=== PATIENT | female | born 1960 | race Caucasian/White ===

== ENCOUNTER 2018-05-14 02:03 | Observation (INO) | payer OTHER ==
--- NOTE | 2018-05-14 02:32 | ER Document Report ---
ED General - General Chief Complaint: Chest Pain Stated Complaint: CHEST PAIN Time Seen by Provider: 05/14/18 02:31 Notes: Patient is a 58-year-old female presents with complaint of chest pain. Some dyspnea. Some nausea. Said symptoms around 8 PM and they have gradually worsened. She feels a significant heaviness on her chest. No history of cardiac disease. Past medical problems she has is basal cell cancer on her face for which she is been using a cream for. She stopped using this cream 1 week ago. No fevers. No vomiting. No abdominal pain. She said she had similar symptoms approximately 4 months ago but they went away and therefore she never saw a doctor. She is followed by the [facility]. She used to smoke. She does drink alcohol on a daily basis. TRAVEL OUTSIDE OF THE [place] IN LAST 30 DAYS: No - Related Data Allergies/Adverse Reactions: No Known Allergies Allergy (Verified 05/14/18 02:32) Past Medical History - Social History Smoking Status: Former Smoker Frequency of alcohol use: daily Drug Abuse: None Family History: Reviewed & Not Pertinent Review of Systems - Review of Systems Notes: My Normal Review Basic REVIEW OF SYSTEMS: CONSTITUTIONAL : Denies fever, chills, or sweats. Denies recent illness. EENT: Denies eye, ear, throat, or mouth pain or symptoms. Denies nasal or sinus congestion. CARDIOVASCULAR: Chest pressure RESPIRATORY: Some dyspnea. GASTROINTESTINAL: Denies abdominal pain. Nausea MUSCULOSKELETAL: Denies neck or back pain or joint pain or swelling. SKIN: Denies rash or skin lesions. NEUROLOGICAL: Denies altered mental status or loss of consciousness. Denies headache. Denies weakness or paralysis or loss of use of either side. Denies problems with gait or speech. Denies sensory or motor loss. PSYCHIATRIC: Denies anxiety or stress or depression. ALL OTHER SYSTEMS REVIEWED AND NEGATIVE. Physical Exam - Vital signs Vitals: Temp Pulse Resp BP Pulse Ox 98.5 F 74 16 137/83 H 97 05/14/18 02:17 05/14/18 02:17 05/14/18 02:17 05/14/18 02:17 05/14/18 02:17 - Notes Notes: General Appearance: Well nourished, alert, cooperative, no acute distress, no obvious discomfort. Vitals: reviewed, See vital signs table. Head: Red irritated skin on face due to recent treatment for basal cell cancer. Eyes: PERRL, EOMI, Conjuctiva clear Mouth: No decreasd moisture Lungs: No wheezing, No rales, No rhonci, No accessory muscle use, good air exchange bilaterally. Heart: Normal rate, Regular rythm, No murmur, no rub Abdomen: Normal BS, soft, No rigidity, No abdominal tenderness, No guarding, no rebound, no abdominal masses, no organomegaly Extremities: good pulses in all extremities, no swelling or tenderness in the extremities, no edema. Skin: warm, dry, appropriate color, no rash Neuro: speech clear, oriented x 3, normal affect, responds appropriately to questions. Course - Re-evaluation Re-evalutation: 05/14/18 03:51 Patient's chest pressure was relieved with the nitro. Her symptoms are very consistent with that of coronary disease. Symptoms consist of chest heaviness, nausea, shortness of breath. Being that she had the symptoms relieved with nitro think is appropriate to admit her for further cardiac workup. Initial EKG and troponin are negative. I did speak with the hospitalist, Dr. Beckford, who agrees to evaluate the patient for admission. Dictation of this chart was performed using voice recognition software; therefore, there may be some unintended grammatical errors. - Vital Signs Vital signs: Temp Pulse Resp BP Pulse Ox 98.5 F 79 14 121/82 96 05/14/18 02:17 05/14/18 02:32 05/14/18 03:01 05/14/18 03:01 05/14/18 03:01 - Laboratory Result Diagrams: 05/14/18 02:36 05/14/18 02:36 Laboratory results interpreted by me: 05/14/18 02:36 AST 57 H ALT 81 H - EKG Interpretation by Me Additional EKG results interpreted by me: 05/14/18 02:32 EKG is reviewed and interpreted by me. EKG shows sinus rhythm with a rate of [address] segment elevation or depression. No ischemic T wave inversions. OR interval, QRS duration, QT intervals are within normal range. No old EKG av ailable for comparison. Discharge - Discharge Clinical Impression: Chest pain Qualifiers: Chest pain type: unspecified Qualified Code(s): R07.9 - Chest pain, unspecified Condition: Good Disposition: ADMITTED OBSERVATION Admitting Provider: Hospitalist Unit Admitted: Telemetry
[2018-05-14] MEDS ORDERED: ASPIRIN 325 MG TABLET PO ONE (02:38)
[2018-05-14] MEDS ORDERED: NITROGLYCERIN 0.4 MG/TAB 25 TAB/BOTTLE SL PRN ×2 (02:38→03:37)
[2018-05-14 02:44] LABS: ABSOLUTE EOSINOPHILS # (AUTO) 0.1 10^3/uL (0.0-0.6); ABSOLUTE LYMPHOCYTES (AUTO) 1.6 10^3/uL (0.5-4.7); ABSOLUTE MONOCYTES (AUTO) 0.8 10^3/uL (0.1-1.4); ABSOLUTE NEUT (AUTO) 7.6 10^3/uL (1.7-8.2); BASOPHILS % (AUTO) 0.4 % (0-2); EOSINOPHILS % (AUTO) 1.2 % (0-6); HEMATOCRIT 42.6 % (36.0-47.0); HEMOGLOBIN 14.6 g/dL (12.0-15.5); LYMPHOCYTES % (AUTO) 15.5 % (13-45); MEAN CORPUSCULAR HEMOGLOBIN 31.3 pg (27.0-33.4); MEAN CORPUSCULAR HGB CONC 34.2 g/dL (32.0-36.0); MEAN CORPUSCULAR VOLUME 92 fl (80-97); MONOCYTES % (AUTO) 8.3 % (3-13); PLATELET COUNT 288 10^3/uL (150-450); RED BLOOD COUNT 4.65 10^6/uL (3.72-5.28); RED CELL DISTRIBUTION WIDTH 12.7 % (11.5-14.0); SEGMENTED NEUTROPHILS % (AUTO) 74.6 % (42-78); TOTAL CELLS COUNTED % (AUTO) 100 %; WHITE BLOOD COUNT 10.1 10^3/uL (4.0-10.5)
[2018-05-14 03:05] LABS: ALANINE AMINOTRANSFERASE 81 U/L (9-52); ALKALINE PHOSPHATASE 105 U/L (38-126); ANION GAP 12 (5-19); ASPARTATE AMINO TRANSFERASE 57 U/L (14-36); BILIRUBIN,DIRECT 0.3 mg/dL (0.0-0.4); BILIRUBIN,TOTAL 0.8 mg/dL (0.2-1.3); BLOOD UREA NITROGEN 13 mg/dL (7-20); CALCIUM 10.2 mg/dL (8.4-10.2); CARBON DIOXIDE 24 mmol/L (22-30); CHLORIDE 105 mmol/L (98-107); GLUCOSE 107 mg/dL (75-110); LIPASE 167.7 U/L (23-300); POTASSIUM 4.5 mmol/L (3.6-5.0); TOTAL PROTEIN 7.4 g/dL (6.3-8.2)
[2018-05-14 03:06] LABS: ALCOHOL < 10 mg/dL (NONE DETECTED)
--- NOTE | 2018-05-14 03:18 | RADIOLOGY REPORT (SQ) ---
EXAM DESCRIPTION: XR CHEST 1 VIEW COMPLETED DATE/TME: 05/14/2018 02:39 CLINICAL HISTORY: 58 years Female, chest pain COMPARISON: None. NUMBER OF VIEWS/TECHNIQUE: 1/AP FINDINGS: Adequate lung volume, clear parenchyma, normal cardiac silhouette, and intact bony thorax. IMPRESSION: No acute cardiopulmonary findings.
[2018-05-14] MEDS ORDERED: NITROGLYCERIN 2% OINTMENT 1 GM PACKET TP ONE (03:25)
[2018-05-14] MEDS ORDERED: MAG HYDROX/AL HYDROX/SIMETH SUSP 30 ML UDCUP PO PRN (03:37)
--- NOTE | 2018-05-14 04:34 | PDOC H&P ---
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 Pain lasted approximately 2 hours of nose associated with nausea without vomiting, shortness of breath or palpitations. She admits previous episode approximately 4 months ago which resolved spontaneously without intervention and without follow-up. She denies recent change in medications, change in bowel habits, uncontrolled GERD and otherwise feels well. Past Medical History Cardiac Medical History: Reports: None Pulmonary Medical History: Reports: None EENT Medical History: Reports: None Neurological Medical History: Reports: None Endocrine Medical History: Reports: None Malignancy Medical History: Reports: Skin Cancer GI Medical History: Reports: None Musculoskeltal Medical History: Reports: None Skin Medical History: Reports: Eczema, Other - Atopic dermatitis Psychiatric Medical History: Reports: None Traumatic Medical History: Reports: None Hematology: Reports: None Infectious Medical History: Reports: None Past Surgical History Past Surgical History: Reports: None Social History Information Source: Patient, PENDING SALE TO [facility] Records Lives with: Spouse/Significant other Smoking Status: Former Smoker Frequency of Alcohol Use: Social Drugs: None - Advance Directive Resuscitation Status: Full Code Family History Family History: CAD. denies: Malignancy Parental Family History Reviewed: Yes Children Family History Reviewed: Yes Sibling(s) Family History Reviewed.: Yes Medication/Allergy Allergies/Adverse Reactions: No Known Allergies Allergy (Verified 05/14/18 02:32) Review of Systems Constitutional: ABSENT: chills, fever(s), headache(s), weight gain, weight loss Eyes: ABSENT: visual disturbances Ears: ABSENT: hearing changes Cardiovascular: ABSENT: chest pain, dyspnea on exertion, edema, orthropnea, palpitations Respiratory: ABSENT: cough, hemoptysis Gastrointestinal: ABSENT: abdominal pain, constipation, diarrhea, hematemesis, hematochezia, nausea, vomiting Genitourinary: ABSENT: dysuria, hematuria Musculoskeletal: ABSENT: joint swelling Integumentary: ABSENT: rash, wounds Neurological: ABSENT: abnormal gait, abnormal speech, confusion, dizziness, focal weakness, syncope Psychiatric: ABSENT: anxiety, depression, homidical ideation, suicidal ideation Endocrine: ABSENT: cold intolerance, heat intolerance, polydipsia, polyuria Hematologic/Lymphatic: ABSENT: easy bleeding, easy bruising Physical Exam Vital Signs: Temp Pulse Resp BP Pulse Ox 98.5 F 79 16 137/94 H 97 05/14/18 02:17 05/14/18 02:32 05/14/18 04:01 05/14/18 04:01 05/14/18 04:01 Intake & Output 05/12/18 05/13/18 05/14/18 11:59 11:59 11:59 Weight 68.039 kg General appearance: PRESENT: no acute distress, well-developed, well-nourished Head exam: PRESENT: atraumatic, normocephalic Eye exam: PRESENT: conjunctiva pink, EOMI, PERRLA. ABSENT: scleral icterus Ear exam: PRESENT: normal external ear exam Mouth exam: PRESENT: moist, tongue midline Neck exam: ABSENT: carotid bruit, JVD, lymphadenopathy, thyromegaly Respiratory exam: PRESENT: clear to auscultation [place]. ABSENT: rales, rhonchi, wheezes Cardiovascular exam: PRESENT: RRR. ABSENT: diastolic murmur, rubs, systolic murmur Pulses: PRESENT: normal dorsalis pedis pul Vascular exam: PRESENT: normal capillary refill GI/Abdominal exam: PRESENT: normal bowel sounds, soft. ABSENT: distended, guarding, mass, organolmegaly, rebound, tenderness Rectal exam: PRESENT: deferred Extremities exam: PRESENT: full ROM. ABSENT: calf tenderness, clubbing, pedal edema Neurological exam: PRESENT: alert, awake, oriented to person, oriented to place, oriented to time, oriented to situation, CN II-XII grossly intact. ABSENT: motor sensory deficit Psychiatric exam: PRESENT: appropriate affect, normal mood. ABSENT: homicidal ideation, suicidal ideation Skin exam: PRESENT: dry, intact, warm. ABSENT: cyanosis, rash Results Laboratory Results: 05/14/18 02:36 05/14/18 02:36 05/14/18 05/14/18 02:36 02:36 WBC 10.1 RBC 4.65 Hgb 14.6 Hct 42.6 MCV 92 MCH 31.3 MCHC 34.2 RDW 12.7 Plt Count 288 Seg Neutrophils % 74.6 Lymphocytes % 15.5 Monocytes % 8.3 Eosinophils % 1.2 Basophils % 0.4 Absolute Neutrophils 7.6 Absolute Lymphocytes 1.6 Absolute Monocytes 0.8 Absolute Eosinophils 0.1 Absolute Basophils 0.0 Sodium 141.0 Potassium 4.5 Chloride 105 Carbon Dioxide 24 Anion Gap 12 BUN 13 Creatinine 0.60 Est GFR ( Amer) > 60 Est GFR (Non-Af Amer) > 60 Glucose 107 Calcium 10.2 Total Bilirubin 0.8 AST 57 H ALT 81 H Alkaline Phosphatase 105 Total Protein 7.4 Albumin 5.0 Lipase 167.7 05/14/18 02:36 Troponin I < 0.012 Impressions: Chest X-Ray 05/14/18 02:39 IMPRESSION: No acute cardiopulmonary findings. Assessment & Plan - Diagnosis (1) Chest pain Qualifiers: Chest pain type: unspecified Qualified Code(s): R07.9 - Chest pain, unspecified Is this a current diagnosis for this admission?: Yes Plan: Chest pain care set, serial cardiac enzymes, Cardiolite stress test ordered (2) Nausea Is this a current diagnosis for this admission?: Yes Plan: Cardiac versus esophageal versus pancreatic, follow-up lipase, symptomatic management (3) LFT elevation Is this a current diagnosis for this admission?: Yes Plan: ALT doubled AST, follow-up hep C - Time Time Spent: 50 to 70 Minutes
[2018-05-14] MEDS: HEPARIN SOD (PORCINE) 5,000 UNIT/ML 1 ML SYRINGE SUBCUT SCH ×3 (05:22→21:28)
--- NOTE | 2018-05-14 07:34 | EKG REPORT ---
SEVERITY:- BORDERLINE ECG - SINUS RHYTHM LEFT AXIS DEVIATION NONSPECIFIC ST-T CHANGES : Confirmed by: Ramón Espinoza MD 14-May-2018 07:34:02
[2018-05-14] MEDS ORDERED: ACETAMINOPHEN 325 MG TABLET PO PRN (10:43)
[2018-05-14] MEDS: DOCUSATE SODIUM 100 MG CAPSULE PO SCH ×2 (11:14→20:14)
[2018-05-14 11:42] LABS: CREATINE KINASE MB 0.31 ng/mL (<4.55)
[2018-05-14 11:45] LABS: TROPONIN I < 0.012 ng/mL
[2018-05-14] MEDS: MORPHINE SULFATE 10 MG/ML INJ ONE (13:58)
[2018-05-14 16:45] LABS: CREATINE KINASE MB < 0.22 ng/mL (<4.55); TROPONIN I < 0.012 ng/mL
[2018-05-14] MEDS ORDERED: MORPHINE SULFATE 10 MG/ML INJ IV ONE (17:00)
--- NOTE | 2018-05-14 17:04 | EKG REPORT ---
SEVERITY:- ABNORMAL ECG - SINUS RHYTHM LEFT AXIS DEVIATION NONSPECIFIC T ABNORMALITIES, INFERIOR LEADS : Confirmed by: Ramón Espinoza MD 14-May-2018 17:04:01
[2018-05-14] MEDS ORDERED: PANTOPRAZOLE SODIUM 40 MG VIAL IV SCH (20:00)
[2018-05-15] MEDS: HEPARIN SOD (PORCINE) 5,000 UNIT/ML 1 ML SYRINGE SUBCUT SCH ×2 (05:13→14:35)
[2018-05-15 05:38] LABS: CHOLESTEROL 227.99 mg/dL (0-200); CREATINE KINASE 29 U/L (30-135); TRIGLYCERIDES 259 mg/dL (<150)
[2018-05-15 05:49] LABS: DIRECT LDL 112 mg/dL (<100)
[2018-05-15 06:00] LABS: VLDL CHOLESTEROL 51.8 mg/dL (10-31)
[2018-05-15] MEDS ORDERED: REGADENOSON INJ 0.4 MG/5 ML DISP.SYRIN IV ONE (12:34)
[2018-05-15] MEDS: DOCUSATE SODIUM 100 MG CAPSULE PO SCH (14:33)
--- NOTE | 2018-05-15 14:47 | DRAGON STRESS TEST REPORT ---
Intravenous Lexiscan Cardiolite stress test using single photon emmision computerized tomography. Date of procedure: 05/15/2018. Ordering Provider: Dr. Miguel Beckford. Patient's status: Inpatient. Indication: Chest pain. Coronary risk factors: Age, and family history of coronary artery disease. Resting EKG: Sinus Rhythm. Within Normal Limits. Stress EKG:No changes of ischemia. The patient had no chest pain or discomfort, and there were no arrhythmias seen. Reason for termination: Protocol. Conclusions: Normal EKG and hemodynamic response to IV Lexiscan. Nuclear data: At rest the patient was given 10.06 millicuries of technetium 99m sestamibi injected intravenously. As per protocol rest non gated SPECT images were obtained. Subsequently the patient was given intravenous Lexiscan at a dose of 0.4 mg in 5 mL intravenously, followed by flush with normal saline. Subsequently the stress dose of 32.8 millicuries of technetium 99m sestamibi was injected intravenously. As per protocol stress gated images were obtained. Nuclear interpretation: Review of images showed that all segments of the myocardium had normal perfusion at rest, and normal perfusion post stress with IV Lexiscan. All segments of the myocardium had normal motion, contraction, and thickening by gated study. T. I D. ratio was normal at 0.95. There is no transient ischemic dilatation of the left ventricle. Computer read rest, and stress left ventricular ejection fraction were 70 %, and 71 %, respectively. Conclusion: 1. There is no scintigraphic evidence of Lexiscan induced myocardial ischemia. 2. There is no scintigraphic evidence of myocardial infarction/scar. Recommendations: Aggressive risk factor modification, and treating the underlying co- morbidities. MTDD
[2018-05-15 16:35] VITALS: BP 127/66
--- NOTE | 2018-05-16 16:10 | PDOC DISCHARGE SUMMARY ---
General - Admit/Disc Date/PCP Admission Date/Primary Care Provider: 05/14/18 03:48 Discharge Date: 05/15/18 - Discharge Diagnosis (1) Chest pain Is this a current diagnosis for this admission?: Yes (2) Nausea Is this a current diagnosis for this admission?: Yes (3) LFT elevation Is this a current diagnosis for this admission?: Yes (4) Hyperlipidemia Is this a current diagnosis for this admission?: Yes - Additional Information Resuscitation Status: Full Code Discharge Diet: As Tolerated Discharge Activity: Activity As Tolerated Home Medications: Ibuprofen [Advil] 200 mg PO Q8HP PRN 05/14/18 History of Present Illness History of Present Illness: MATTHEW SALAS is a 58 year old female with a past medical history of atopic dermatitis and 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 Pain lasted approximately 2 hours of nose associated with nausea without vomiting, s hortness of breath or palpitations. She admits previous episode approximately 4 months ago which resolved spontaneously without intervention and without follow- up. She denies recent change in medications, change in bowel habits, uncontrolled GERD and otherwise feels well. Hospital Course Hospital Course: (1) Chest pain Likely noncardiac. Troponins negative x3. EKG no acute changes. Cardiolite stress test negative. Patient PCP follow-up. (2) Nausea Resolved. (3) LFT elevation Denies taking any herbal medications, Tylenol abuse, alcohol abuse. She is receiving chemotherapy for her skin cancer which could have elevated her liver enzymes. Hepatitis is panel pending at the time of discharge. Follow-up and inform patient if any positive results. Try to make an appointment with her PCP however patient is [place] and as per nursing staff were not able to make appoint[facility]. He was strongly advised follow-up with PCP for reevaluation of liver function test. (4) Hyperlipidemia ASCVD 4.7. Advised to be started on a statins but refused stating she will try to control it with diet and exercise. Physical Exam Vital Signs: Temp Pulse Resp BP Pulse Ox 98.6 F 67 16 127/66 H 96 05/15/18 16:30 05/15/18 16:30 05/15/18 16:30 05/15/18 16:30 05/15/18 16:30 Intake & Output 05/15/18 05/16/18 05/17/18 06:59 06:59 06:59 Intake Total 820 Balance 820 Weight 69.6 kg General appearance: PRESENT: no acute distress, well-developed, well-nourished Head exam: PRESENT: atraumatic, normocephalic Eye exam: PRESENT: conjunctiva pink, EOMI, PERRLA. ABSENT: scleral icterus Neck exam: ABSENT: carotid bruit, JVD, lymphadenopathy, thyromegaly Respiratory exam: PRESENT: clear to auscultation [place]. ABSENT: rales, rhonchi, wheezes Cardiovascular exam: PRESENT: RRR. ABSENT: diastolic murmur, rubs, systolic murmur GI/Abdominal exam: PRESENT: normal bowel sounds, soft. ABSENT: distended, guarding, mass, organolmegaly, rebound, tenderness Extremities exam: PRESENT: full ROM. ABSENT: calf tenderness, clubbing, pedal edema Neurological exam: PRESENT: alert, awake, oriented to person, oriented to place, oriented to time, oriented to situation, CN II-XII grossly intact. ABSENT: motor sensory deficit Results Laboratory Results: 05/14/18 02:36 05/14/18 02:36 05/14/18 05/14/18 05/14/18 02:36 02:36 10:20 Creatine Kinase CK-MB (CK-2) 0.47 0.31 Troponin I < 0.012 Cancelled < 0.012 05/14/18 05/15/18 16:00 04:40 Creatine Kinase 29 L CK-MB (CK-2) < 0.22 Troponin I < 0.012 Impressions: Chest X-Ray 05/14/18 02:39 IMPRESSION: No acute cardiopulmonary findings. Qualifiers - * PATIENT BEING DISCHARGED WITH ANY OF THE FOLLOWING DIAGNOSIS: No
== END 2018-05-15 17:01 | disposition home or self-care (01) ==
LOC: ER 02:03 → EH 03:48 → 3N 04:58
PROVIDERS: ADMIT Internal Medicine; ATTEND Internal Medicine
DX: R07.2 Precordial pain (principal); R11.0 Nausea; R79.89 Other specified abnormal findings of blood chemistry; C76.0 Malignant neoplasm of head, face and neck; E78.5 Hyperlipidemia, unspecified; R06.00 Dyspnea, unspecified; Z79.899 Other long term (current) drug therapy; Z82.49 Family history of ischemic heart disease and other diseases of the circulatory system; Z87.891 Personal history of nicotine dependence
CPT/HCPCS: 93005 ×2; 99285; 36415 ×2; 82553; 80307; 82550; 83690; 85025; 80053; 84484; 80061; 80074; 93017; 71045; 78452; 93010; A9500; J2785; J1644 ×2; J2270; S0164; J3490 ×2; Q9969; G0378